=== PATIENT | male | born 1970 | race Caucasian/White ===

== ENCOUNTER → 2017-06-01 | Outpatient (CLI) | payer BC ==
[2017-06-01 11:07] LABS: BLOOD UREA NITROGEN 19 mg/dl (7-18); BUN/CREATININE RATIO 16.7 (10-20); CALCIUM 8.6 mg/dl (8.5-10.1); CARBON DIOXIDE 27 mmol/L (21-32); CHLORIDE 103 mmol/L (98-107); CHOLESTEROL 209 mg/dl (0-200); CREATININE 1.15 mg/dl (0.60-1.40); GLUCOSE 98 mg/dl (70-99); POTASSIUM 4.1 mmol/L (3.5-5.1); SODIUM 138 mmol/L (136-145)
[2017-06-01 11:12] LABS: ALB/GLOB RATIO 1.3 (0.9-2); ALKALINE PHOSPHATASE 57 U/L (45-117); ALT/SGPT 42 U/L (12-78); AST/SGOT 17 U/L (15-37); CHOLESTEROL/HDL RATIO 4.8; HDL CHOLESTEROL 44 mg/dl; LDL CHOLESTEROL CALCULATED 146 mg/dl; TRIGLYCERIDES 96 mg/dl (0-150); VERY LOW DENSITY LIPOPROT CALC 19 mg/dl
== END | disposition home or self-care (01) ==
LOC: C.LABBC 08:39
PROVIDERS: ATTEND Nurse Practitioner Family
DX: Z13.1 Encounter for screening for diabetes mellitus (principal); Z13.220 Encounter for screening for lipoid disorders